=== PATIENT | male | born 1965 | race Caucasian/White ===

== ENCOUNTER 2022-10-01 19:44 | Emergency (ER) | payer SELFPAY ==
[~2022-10-01] VITALS: Ht 193 cm; Wt 127.0 kg
[2022-10-01 20:39] VITALS: BP 147/77
--- NOTE | 2022-10-01 21:59 | ED Integumentary General ---
General Chief Complaint: Bite-Animal/Human/Insect Stated Complaint: DOG BITE RIGHT LOWER ARM Nursing Triage Note: Pt presents with dog bite to R upper forearm. Pt reports he was breaking up a dog fight, unknown which dog bit him, however both up to date on vaccinations. Source: patient Exam Limitations: no limitations History of Present Illness Date Seen by Provider: October 01, 2022 Time Seen by Provider: 21:40 Initial Comments 57-year-old male presents to the ED for a dog bite to right forearm. States the injury occurred around 7:15 PM tonight. He reports he got caught up in the middle of the dog fight. Patient reports both dogs are up-to-date on their rabies vaccines. He states his last tetanus was 2 to 3 years ago. Allergies and Home Medications Allergies Coded Allergies: No Known Drug Allergies (Unverified , 10/01/22) Patient Home Medication List Home Medication List Reviewed: Yes Review of Systems Review of Systems Constitutional: no symptoms reported Skin: other (Dog bite) Physical Exam Vital Signs Vital Signs - First Documented 10/01/22 20:39 Temp 36.7 Pulse 81 Resp 18 B/P (MAP) 147/77 (100) Capillary Refill : Less Than 3 Seconds General Appearance: WD/WN, no apparent distress Neck: supple, normal inspection Cardiovascular: regular rate, rhythm Respiratory: lungs clear, normal breath sounds, no respiratory distress, no accessory muscle use Neurologic/Psychiatric: alert, normal mood/affect Skin: normal color, warm/dry, other (Dog bite to right upper forearm, large laceration needing repair, plus small puncture wound) Progress/Results/Core Measures Results/Orders My Orders Orders - EDY AQUINO APRN Lidocaine 1% Inj 20 Ml (Xylocaine 1% Inj (10/01/22 22:00) Vital Signs/I&O 10/01/22 20:39 Temp 36.7 Pulse 81 Resp 18 B/P (MAP) 147/77 (100) Blood Pressure Mean: 100 Progress Progress Note : Progress Note Patient seen and evaluated, resting comfortably in bed, no acute distress. Large laceration noted to right upper forearm as well as small puncture wound. Large laceration will need to be repaired due to depth of laceration. 2220 laceration repaired, see procedure note. Patient does not need tetanus updated. Discharge instructions and return precautions provided. Departure Impression Primary Impression: Dog bite Disposition: 01 HOME, SELF-CARE Condition: Stable Departure-Patient Inst. Decision time for Depature: 22:21 Referrals: NO,LOCAL PHYSICIAN (PCP/Family) Primary Care Physician Patient Instructions: Animal Bites (DC) Add. Discharge Instructions: Complete full course of antibiotic as directed. Return in 7 to 10 days to have the sutures removed. Monitor for signs of infection including redness, swelling, discolored odorous drainage from wound. Return for signs of infection, or any other new, concerning, or worsening symptoms. All discharge instructions reviewed with patient and/or family. Voiced understanding. Scripts Amoxicillin/Potassium Clav (Amox Tr-K Clv 875-125 mg Tab) 875 Mg-125 Mg Tablet 1 EACH PO BID for 10 Days, #20 TAB 0 Refills Prov: EDY AQUINO APRN 10/01/22 EDY AQUINO APRN October 01, 2022 21:59
[2022-10-01] MEDS ORDERED: LIDOCAINE 1% INJ 20 ML VIAL INJ ONE (22:00)
[2022-10-01] MEDS ORDERED: AMOX1TAB12 PO (22:24)
[2022-10-01] MEDS ORDERED: AUGMENTIN 875 MG TAB (AMOXICILLIN/CLAVULANATE) PO ONE (22:30)
== END 2022-10-01 22:35 | disposition home or self-care (01) ==
LOC: ER 19:50
DX: S51.811A Laceration without foreign body of right forearm, initial encounter (principal); S51.831A Puncture wound without foreign body of right forearm, initial encounter; W54.0XXA Bitten by dog, initial encounter
CPT/HCPCS: 12002